=== PATIENT | female | born 1965 | race Caucasian/White ===

== ENCOUNTER → 2016-12-23 | Outpatient (CLI) | payer OTHER ==
[~2016-12-23] MED LIST: GADOBUTROL 10 ML VIAL IVP ONE
== END ==
LOC: FIMAGING 13:17
PROVIDERS: ATTEND Emergency Medicine
DX: R51 Headache (principal)
CPT/HCPCS: A9585

== ENCOUNTER → 2018-01-23 | Outpatient (CLI) | payer OTHER | LOC: BMCIMAGING 16:24 | PROVIDERS: ATTEND Internal Medicine | DX: R05 Cough (principal); J45.909 Unspecified asthma, uncomplicated ==

== ENCOUNTER → 2018-07-16 | Outpatient (CLI) | payer OTHER | LOC: FIMAGING 09:11 | PROVIDERS: ATTEND Obstetrics & Gynecology Gynecology | DX: Z12.31 Encounter for screening mammogram for malignant neoplasm of breast (principal); Z80.3 Family history of malignant neoplasm of breast; R92.8 Other abnormal and inconclusive findings on diagnostic imaging of breast ==

== ENCOUNTER → 2018-07-25 | Outpatient (CLI) | payer OTHER | LOC: FIMAGING 10:02 | PROVIDERS: ATTEND Internal Medicine | DX: R92.8 Other abnormal and inconclusive findings on diagnostic imaging of breast (principal) ==